=== PATIENT | male | born 1960 | race Caucasian/White ===

== ENCOUNTER 2025-05-02 14:26 | Inpatient (IN) | payer OTHER, SELFPAY ==
[2025-05-02] MEDS ORDERED: Heparin 25,000 UNITS/D5W 500 ml bag ONE (14:43)
[2025-05-02] MEDS ORDERED: Heparin 10,000 UNITS/ 10 ML VIAL ONE ×3 (14:43→16:34)
[2025-05-02] MEDS ORDERED: Nitroglycerin 0.4 MG TAB (25 Tab Bottle) ONE (14:43)
[2025-05-02] MEDS ORDERED: Lidocaine 1% (PF) 30 ML VIAL ONE (14:48)
[2025-05-02] MEDS ORDERED: Nitroglycerin 50 MG/250 ML BOT 250 ML ONE (14:48)
[2025-05-02 14:55] LABS: #Basophils 0.03 10x3/uL (0.0-0.2); #Eosinophils 0.11 10x3/uL (0.0-0.7); #Monocytes 0.56 10x3/uL (0.11-0.59); #Neutrophils 4.10 10x3/uL (1.40-6.50); %Basophils 0.5 % (0.0-1.0); %Eosinophils 1.7 % (0.0-10.0); %Lymphocytes 24.6 % (21.0-51.0); %Monocytes 8.8 % (0.0-10.0); %Neutrophils 64.2 % (42.0-75.0); Hematocrit 47.4 % (42.0-52.0); Hemoglobin 16.3 g/dL (14.0-18.0); Mean Corpuscular Hemoglobin 30.1 pg (27.0-31.0); Mean Corpuscular Volume 87.5 fL (78.0-98.0); Platelet Count 173 10x3/uL (130-400); Red Blood Cell (RBC) Count 5.42 mill/uL (4.70-6.10); White Blood Cell (WBC) Count 6.38 10x3/uL (4.8-10.8)
[2025-05-02 15:09] LABS: INR-International Normal Ratio 1.0; Prothrombin Time 13.2 sec (12.0-14.7)
[2025-05-02 15:10] LABS: PTT 31.9 sec (22.9-36.1)
[2025-05-02 15:19] LABS: ALT (SGPT) 30 U/L (Less than 45); AST (SGOT) 39 U/L (11-34); Albumin 4.2 g/dL (3.1-4.5); Alkaline Phosphatase 124 U/L (40-110); Anion Gap 15 mmol/L (10-20); BUN (Urea Nitrogen) 6 mg/dL (8.4-25.7); Bilirubin, Total 1.0 mg/dL (0.3-1.2); Calc. Creatinine Clearance 0 mL/min (70-130); Calcium 9.9 mg/dL (7.8-10.44); Carbon Dioxide 25 mmol/L (23-31); Chloride 100 mmol/L (98-107); Globulin 3.7 g/dL (2.4-3.5); Glucose 291 mg/dL (80-115); Lipase 33 U/L (8-78); Potassium 3.5 mmol/L (3.5-5.1); Sodium 136 mmol/L (136-145)
[2025-05-02] MEDS ORDERED: Iopamidol 370 76% 100 ML VIAL ONE (15:54)
[2025-05-02] MEDS ORDERED: Ondansetron PF 4 MG/2 ML Vial ONE (16:34)
[2025-05-02] MEDS ORDERED: Nitroglycerin 0.4 MG TAB (25 Tab Bottle) SL PRN (17:40)
[2025-05-02] MEDS ORDERED: Milk Of Magnesia 30 ML UDCUP PO PRN (17:40)
[2025-05-02] MEDS ORDERED: Communication Order-Pharmacy FS SCH (17:43)
[2025-05-02] MEDS ORDERED: Heparin 10,000 UNITS/ 10 ML VIAL SLOW IVP SCH (18:00)
[2025-05-02 18:09] VITALS: BMI 25.8
[2025-05-02] MEDS: Aspirin 81 mg Enteric Coated Tablet PO SCH (19:39)
[2025-05-02 21:42] LABS: PTT 199.1 sec (22.9-36.1)
[2025-05-03 04:05] LABS: #Basophils 0.03 10x3/uL (0.0-0.2); #Eosinophils 0.11 10x3/uL (0.0-0.7); #Monocytes 0.90 10x3/uL (0.11-0.59); #Neutrophils 7.86 10x3/uL (1.40-6.50); %Basophils 0.3 % (0.0-1.0); %Eosinophils 1.0 % (0.0-10.0); %Lymphocytes 21.1 % (21.0-51.0); %Monocytes 8.0 % (0.0-10.0); %Neutrophils 69.4 % (42.0-75.0); Hematocrit 39.4 % (42.0-52.0); Hemoglobin 13.7 g/dL (14.0-18.0); Mean Corpuscular Hemoglobin 30.4 pg (27.0-31.0); Mean Corpuscular Volume 87.4 fL (78.0-98.0); Platelet Count 184 10x3/uL (130-400); Red Blood Cell (RBC) Count 4.51 mill/uL (4.70-6.10); White Blood Cell (WBC) Count 11.31 10x3/uL (4.8-10.8)
[2025-05-03 04:22] LABS: ALT (SGPT) 42 U/L (Less than 45); AST (SGOT) 192 U/L (11-34); Albumin 3.3 g/dL (3.1-4.5); Alkaline Phosphatase 92 U/L (40-110); Anion Gap 11 mmol/L (10-20); BUN (Urea Nitrogen) 6 mg/dL (8.4-25.7); Bilirubin, Total 0.8 mg/dL (0.3-1.2); Calc. Creatinine Clearance 93 mL/min (70-130); Calcium 8.7 mg/dL (7.8-10.44); Carbon Dioxide 24 mmol/L (23-31); Cardiac Risk 3.9 (Less than 4.5); Chloride 105 mmol/L (98-107); Cholesterol 174 mg/dl (< 200 Desired); Globulin 2.8 g/dL (2.4-3.5); Glucose 150 mg/dL (80-115); HDL Cholesterol 45 mg/dL (>60 Neg Risk); LDL Cholesterol, Calculated 111 mg/dL; Potassium 3.7 mmol/L (3.5-5.1); Sodium 136 mmol/L (136-145); Triglycerides 91 mg/dL (Less than 150)
[2025-05-03] MEDS ORDERED: Etomidate 40 MG (20 mL) VIAL ONE (06:29)
[2025-05-03] MEDS ORDERED: Lidocaine 2% PF 100 mg/5 ml Syringe ONE (06:29)
[2025-05-03] MEDS ORDERED: CABG-Clindamycin/D5W 900 MG in Premix 1 BAG IVPB SCH (07:30)
[2025-05-03] MEDS ORDERED: Heparin 10,000 UNITS/1 ML VIAL 30,000 UNITS in Sodium Chloride 0.9% 1,000 ML FS SCH (08:00)
[2025-05-03] MEDS ORDERED: Aspirin 81 mg Enteric Coated Tablet PO SCH (09:00)
[2025-05-03] MEDS ORDERED: Heparin 5,000 UNITS/ML VIAL ONE (09:50)
[2025-05-03] MEDS ORDERED: Calcium Chloride 1 GM/10 ML Abboject SYRINGE ONE (09:50)
[2025-05-03] MEDS ORDERED: PHENYLEPHRINE-NS 100 MCG/ML 10 ML SYRINGE ONE (09:50)
[2025-05-03] MEDS ORDERED: Thrombin 5000 UNITS/5 ML VIAL ONE (09:50)
[2025-05-03] MEDS ORDERED: Heparin 30,000 units/30 ml VIAL ONE (09:50)
[2025-05-03] MEDS: Mupirocin 1 GM TUBE TP SCH (11:14)
[2025-05-03] MEDS ORDERED: Bisacodyl 10 MG SUPP PR PRN (14:46)
[2025-05-03] MEDS ORDERED: Ondansetron PF 4 MG/2 ML Vial IVP PRN (14:46)
[2025-05-03] MEDS ORDERED: Albumin 5% 12.5 GM (250 mL) BOT IVPB PRN (14:46)
[2025-05-03] MEDS ORDERED: Nitroglycerin 50 MG/250 ML BOT 250 ML IVPB PRN (14:46)
[2025-05-03] MEDS ORDERED: Mag-Al 1200 mg/1200 mg/30 ML UDCUP PO PRN (14:46)
[2025-05-03] MEDS ORDERED: hydrALAZINE 20 MG/ML VIAL SLOW IVP PRN (14:46)
[2025-05-03] MEDS ORDERED: Phenylephrine 40 MG/NS 250 ML 250 ML IVPB PRN (14:46)
[2025-05-03] MEDS ORDERED: niCARdipine 25 MG in Sodium Chloride 0.9% 250 ML 250 ML IVPB PRN (14:46)
[2025-05-03] MEDS ORDERED: Guaifenesin DM 100-10/5 ML UDCUP PO PRN (14:46)
[2025-05-03] MEDS ORDERED: Post-Op Insulin Drip Protocol IVPB SCH (14:46)
[2025-05-03] MEDS ORDERED: Electrolyte Replacement Protocol 1 EACH FS SCH (15:00)
[2025-05-03] MEDS ORDERED: Glucagon 1 MG/ML KIT SC PRN (15:15)
[2025-05-03] MEDS ORDERED: Magnesium Sulfate In Water 4 GM in Premix 1 BAG IVPB PRN (15:15)
[2025-05-03] MEDS ORDERED: INSULIN REGULAR IN 0.9 % NACL 100 UNITS in Premix 1 BAG IVPB SCH (15:15)
[2025-05-03] MEDS ORDERED: Potassium Chloride 20 MEQ in Premix 1 BAG IVPB PRN (15:15)
[2025-05-03] MEDS ORDERED: Dextrose 50% Abboject 50 ML SYRINGE SLOW IVP PRN (15:15)
[2025-05-03 15:27] LABS: #Basophils 0.05 10x3/uL (0.0-0.2); #Eosinophils 0.18 10x3/uL (0.0-0.7); #Monocytes 1.17 10x3/uL (0.11-0.59); #Neutrophils 14.12 10x3/uL (1.40-6.50); %Basophils 0.3 % (0.0-1.0); %Eosinophils 0.9 % (0.0-10.0); %Lymphocytes 20.6 % (21.0-51.0); %Monocytes 5.9 % (0.0-10.0); %Neutrophils 71.7 % (42.0-75.0); Hematocrit 34.1 % (42.0-52.0); Hemoglobin 11.4 g/dL (14.0-18.0); Mean Corpuscular Hemoglobin 30.5 pg (27.0-31.0); Mean Corpuscular Volume 91.2 fL (78.0-98.0); Platelet Count 136 10x3/uL (130-400); Red Blood Cell (RBC) Count 3.74 mill/uL (4.70-6.10); White Blood Cell (WBC) Count 19.70 10x3/uL (4.8-10.8)
[2025-05-03 15:31] LABS: Actual Bicarbonate (HCO3a) 20.2 mEq/L (22-28); Base Excess (BEa) -4.2 mEq/L (-2.0 to +3.0); CO2 Tension 34.7 mmHg (35.0-45.0); Calcium, Ionized (arterial) 1.14 mmol/L (1.12-1.30); Hematocrit-ABG 37 % (42.0-52.0); Hemoglobin (Hb) 12.6 g/dL (14.0-18.0); O2 Tension (PaO2), arterial 92.6 mmHg (> 80.0); Potassium - ABG Lab 3.37 mmol/L (3.70-5.30); pH, Arterial 7.382 (7.35-7.45)
[2025-05-03 15:35] LABS: Puncture Site Arterial Line
[2025-05-03 15:36] LABS: ALV-art Gradient 149.225 mmHg (0-20)
[2025-05-03] MEDS: Clindamycin/D5W 900 MG in Premix 1 BAG IVPB SCH (15:36)
[2025-05-03] MEDS: Magnesium 2 GM/50 ML(in water) 2 GM in Premix 1 BAG IVPB SCH (15:36)
[2025-05-03 15:41] LABS: ALT (SGPT) 30 U/L (Less than 45); AST (SGOT) 122 U/L (11-34); Albumin 2.9 g/dL (3.1-4.5); Alkaline Phosphatase 67 U/L (40-110); Anion Gap 12 mmol/L (10-20); BUN (Urea Nitrogen) 7 mg/dL (8.4-25.7); Bilirubin, Total 1.4 mg/dL (0.3-1.2); Calc. Creatinine Clearance 94 mL/min (70-130); Calcium 8.0 mg/dL (7.8-10.44); Carbon Dioxide 20 mmol/L (23-31); Chloride 109 mmol/L (98-107); Globulin 1.9 g/dL (2.4-3.5); Glucose 162 mg/dL (80-115); Potassium 3.4 mmol/L (3.5-5.1); Sodium 138 mmol/L (136-145)
[2025-05-03 15:45] LABS: INR-International Normal Ratio 1.4; Prothrombin Time 17.4 sec (12.0-14.7)
[2025-05-03 15:46] LABS: PTT 31.7 sec (22.9-36.1)
[2025-05-03 18:24] LABS: Actual Bicarbonate (HCO3a) 21.3 mEq/L (22-28); Base Excess (BEa) -4.0 mEq/L (-2.0 to +3.0); CO2 Tension 39.4 mmHg (35.0-45.0); Calcium, Ionized (arterial) 1.18 mmol/L (1.12-1.30); Hematocrit-ABG 35 % (42.0-52.0); Hemoglobin (Hb) 12.0 g/dL (14.0-18.0); O2 Tension (PaO2), arterial 81.0 mmHg (> 80.0); Potassium - ABG Lab 3.56 mmol/L (3.70-5.30); pH, Arterial 7.350 (7.35-7.45)
[2025-05-03 18:25] LABS: Puncture Site Arterial Line
[2025-05-03] MEDS: Norepinephrine 8 MG/0.9% NS 250 ML IVPB PRN (18:46)
[2025-05-03] MEDS: Potassium Chloride 20 MEQ (100 mL) BAG IVPB PRN (19:10)
[2025-05-03] MEDS: Famotidine/PF 20 mg/2ml Vial SLOW IVP SCH (20:15)
[2025-05-03] MEDS: Senokot S 8.6-50 MG TAB PO SCH (20:21)
[2025-05-03 22:17] LABS: Hematocrit 33.6 % (42.0-52.0); Hemoglobin 11.1 g/dL (14.0-18.0)
[2025-05-03 22:34] LABS: Potassium 4.2 mmol/L (3.5-5.1)
[2025-05-04 04:43] LABS: #Basophils Less than 0.03 10x3/uL (0.0-0.2); #Eosinophils Less than 0.03 10x3/uL (0.0-0.7); #Monocytes 1.31 10x3/uL (0.11-0.59); #Neutrophils 10.21 10x3/uL (1.40-6.50); %Basophils 0.1 % (0.0-1.0); %Eosinophils 0.0 % (0.0-10.0); %Lymphocytes 5.9 % (21.0-51.0); %Monocytes 10.7 % (0.0-10.0); %Neutrophils 83.1 % (42.0-75.0); Hematocrit 33.3 % (42.0-52.0); Hemoglobin 10.9 g/dL (14.0-18.0); Mean Corpuscular Hemoglobin 30.2 pg (27.0-31.0); Mean Corpuscular Volume 92.2 fL (78.0-98.0); Platelet Count 117 10x3/uL (130-400); Red Blood Cell (RBC) Count 3.61 mill/uL (4.70-6.10); White Blood Cell (WBC) Count 12.29 10x3/uL (4.8-10.8)
[2025-05-04 05:05] LABS: Anion Gap 12 mmol/L (10-20); BUN (Urea Nitrogen) 9 mg/dL (8.4-25.7); Calc. Creatinine Clearance 99 mL/min (70-130); Calcium 8.3 mg/dL (7.8-10.44); Carbon Dioxide 24 mmol/L (23-31); Chloride 107 mmol/L (98-107); Glucose 130 mg/dL (80-115); Magnesium 2.1 mg/dL (1.6-2.6); Potassium 4.1 mmol/L (3.5-5.1); Sodium 139 mmol/L (136-145)
[2025-05-04] MEDS: Acetaminophen 325 MG TAB PO PRN (07:24)
[2025-05-04] MEDS ORDERED: Glucagon 1 MG/ML KIT IM PRN (09:58)
[2025-05-04] MEDS ORDERED: Dextrose 50% Abboject 50 ML SYRINGE SLOW IVP PRN (09:58)
[2025-05-04] MEDS: Magnesium 2 GM/50 ML(in water) 2 GM in Premix 1 BAG IVPB SCH (10:31)
[2025-05-04] MEDS: Aspirin 325 MG TAB PO SCH (10:31)
[2025-05-04] MEDS: Heparin 5,000 UNITS/ML VIAL SC SCH (10:33)
[2025-05-04] MEDS: Albumin 5% 12.5 GM (250 mL) BOT IVPB PRN (11:45)
[2025-05-04] MEDS ORDERED: Insulin Glargine 30 UNITS/0.3 ML VIAL SC PRN (15:09)
[2025-05-04] MEDS: Transdermal Patch Removal TOP SCH (21:14)
[2025-05-05 04:23] LABS: #Basophils 0.03 10x3/uL (0.0-0.2); #Eosinophils 0.05 10x3/uL (0.0-0.7); #Monocytes 1.51 10x3/uL (0.11-0.59); #Neutrophils 10.19 10x3/uL (1.40-6.50); %Basophils 0.2 % (0.0-1.0); %Eosinophils 0.4 % (0.0-10.0); %Lymphocytes 12.0 % (21.0-51.0); %Monocytes 11.2 % (0.0-10.0); %Neutrophils 75.8 % (42.0-75.0); Hematocrit 30.8 % (42.0-52.0); Hemoglobin 10.1 g/dL (14.0-18.0); Mean Corpuscular Hemoglobin 30.3 pg (27.0-31.0); Mean Corpuscular Volume 92.5 fL (78.0-98.0); Platelet Count 121 10x3/uL (130-400); Red Blood Cell (RBC) Count 3.33 mill/uL (4.70-6.10); White Blood Cell (WBC) Count 13.45 10x3/uL (4.8-10.8)
[2025-05-05 04:33] LABS: Anion Gap 8 mmol/L (10-20); BUN (Urea Nitrogen) 14 mg/dL (8.4-25.7); Calc. Creatinine Clearance 101 mL/min (70-130); Calcium 8.3 mg/dL (7.8-10.44); Carbon Dioxide 28 mmol/L (23-31); Chloride 100 mmol/L (98-107); Glucose 173 mg/dL (80-115); Potassium 4.1 mmol/L (3.5-5.1); Sodium 132 mmol/L (136-145)
[2025-05-05 04:34] LABS: Magnesium 1.9 mg/dL (1.6-2.6)
[2025-05-05] MEDS: Pantoprazole 40 MG DR.TAB PO SCH (07:48)
[2025-05-05] MEDS ORDERED: Artificial Tear Ophth Sol 15 ML BOT EA EYE PRN (10:09)
[2025-05-05] MEDS ORDERED: Milk Of Magnesia 30 ML UDCUP PO PRN (10:09)
[2025-05-05] MEDS ORDERED: Mineral Oil ENEMA PR PRN (10:09)
[2025-05-05] MEDS ORDERED: diphenhydrAMINE 25 MG CAP PO PRN (10:09)
[2025-05-05] MEDS ORDERED: Nitroglycerin 0.4 MG TAB (25 Tab Bottle) SL PRN (10:09)
[2025-05-05] MEDS: Furosemide 40 MG TAB PO SCH (10:38)
[2025-05-05] MEDS: Ferrous Gluconate 324 MG TAB PO SCH (12:54)
[2025-05-05 13:45] LABS: Magnesium 2.1 mg/dL (1.6-2.6)
[2025-05-05] MEDS: PHOS-NAK 1 PKT PACK PO PRN (14:00)
[2025-05-06 05:08] LABS: #Basophils Less than 0.03 10x3/uL (0.0-0.2); #Eosinophils 0.07 10x3/uL (0.0-0.7); #Monocytes 1.01 10x3/uL (0.11-0.59); #Neutrophils 7.00 10x3/uL (1.40-6.50); %Basophils 0.2 % (0.0-1.0); %Eosinophils 0.7 % (0.0-10.0); %Lymphocytes 15.8 % (21.0-51.0); %Monocytes 10.5 % (0.0-10.0); %Neutrophils 72.5 % (42.0-75.0); Hematocrit 29.8 % (42.0-52.0); Hemoglobin 10.1 g/dL (14.0-18.0); Mean Corpuscular Hemoglobin 30.7 pg (27.0-31.0); Mean Corpuscular Volume 90.6 fL (78.0-98.0); Platelet Count 125 10x3/uL (130-400); Red Blood Cell (RBC) Count 3.29 mill/uL (4.70-6.10); White Blood Cell (WBC) Count 9.66 10x3/uL (4.8-10.8)
[2025-05-06 05:14] LABS: Anion Gap 15 mmol/L (10-20); BUN (Urea Nitrogen) 13 mg/dL (8.4-25.7); Calc. Creatinine Clearance 110 mL/min (70-130); Calcium 8.1 mg/dL (7.8-10.44); Carbon Dioxide 23 mmol/L (23-31); Chloride 96 mmol/L (98-107); Glucose 153 mg/dL (80-115); Potassium 3.6 mmol/L (3.5-5.1); Sodium 130 mmol/L (136-145)
[2025-05-06 07:25] LABS: Magnesium 1.8 mg/dL (1.6-2.6)
[2025-05-06] MEDS: Furosemide 40 MG TAB PO SCH (08:24)
[2025-05-06] MEDS ORDERED: Furosemide 40 MG TAB PO SCH (09:00)
[2025-05-07 04:03] LABS: #Basophils Less than 0.03 10x3/uL (0.0-0.2); #Eosinophils 0.10 10x3/uL (0.0-0.7); #Monocytes 1.04 10x3/uL (0.11-0.59); #Neutrophils 5.66 10x3/uL (1.40-6.50); %Basophils 0.2 % (0.0-1.0); %Eosinophils 1.1 % (0.0-10.0); %Lymphocytes 22.9 % (21.0-51.0); %Monocytes 11.7 % (0.0-10.0); %Neutrophils 63.8 % (42.0-75.0); Hematocrit 29.9 % (42.0-52.0); Hemoglobin 9.8 g/dL (14.0-18.0); Mean Corpuscular Hemoglobin 30.1 pg (27.0-31.0); Mean Corpuscular Volume 91.7 fL (78.0-98.0); Platelet Count 173 10x3/uL (130-400); Red Blood Cell (RBC) Count 3.26 mill/uL (4.70-6.10); White Blood Cell (WBC) Count 8.89 10x3/uL (4.8-10.8)
[2025-05-07 04:34] LABS: Anion Gap 13 mmol/L (10-20); BUN (Urea Nitrogen) 14 mg/dL (8.4-25.7); Calc. Creatinine Clearance 100 mL/min (70-130); Calcium 8.4 mg/dL (7.8-10.44); Carbon Dioxide 27 mmol/L (23-31); Chloride 99 mmol/L (98-107); Glucose 115 mg/dL (80-115); Potassium 3.7 mmol/L (3.5-5.1); Sodium 135 mmol/L (136-145)
[2025-05-07] MEDS ORDERED: Senokot S 8.6-50 MG TAB PO PRN (06:41)
[2025-05-07 07:57] LABS: Magnesium 2.1 mg/dL (1.6-2.6)
[2025-05-07] MEDS: Lisinopril 2.5 MG TAB PO SCH (09:22)
[2025-05-08 03:45] LABS: #Basophils Less than 0.03 10x3/uL (0.0-0.2); #Eosinophils 0.13 10x3/uL (0.0-0.7); #Monocytes 1.15 10x3/uL (0.11-0.59); #Neutrophils 5.24 10x3/uL (1.40-6.50); %Basophils 0.2 % (0.0-1.0); %Eosinophils 1.5 % (0.0-10.0); %Lymphocytes 24.5 % (21.0-51.0); %Monocytes 13.2 % (0.0-10.0); %Neutrophils 60.0 % (42.0-75.0); Hematocrit 31.1 % (42.0-52.0); Hemoglobin 10.3 g/dL (14.0-18.0); Mean Corpuscular Hemoglobin 30.5 pg (27.0-31.0); Mean Corpuscular Volume 92.0 fL (78.0-98.0); Platelet Count 209 10x3/uL (130-400); Red Blood Cell (RBC) Count 3.38 mill/uL (4.70-6.10); White Blood Cell (WBC) Count 8.73 10x3/uL (4.8-10.8)
[2025-05-08 04:10] LABS: Anion Gap 13 mmol/L (10-20); BUN (Urea Nitrogen) 14 mg/dL (8.4-25.7); Calc. Creatinine Clearance 94 mL/min (70-130); Calcium 8.4 mg/dL (7.8-10.44); Carbon Dioxide 27 mmol/L (23-31); Chloride 100 mmol/L (98-107); Glucose 122 mg/dL (80-115); Potassium 3.2 mmol/L (3.5-5.1); Sodium 137 mmol/L (136-145)
[2025-05-08 15:23] VITALS: BP 117/80; TEMP 98.1
== END 2025-05-08 15:44 | disposition home or self-care (01) | DRG 231 ==
LOC: ERS 14:26 → CCL 15:06 → CCU 17:14 → PCU 05-05 10:01
PROVIDERS: ADMIT Student in an Organized Health Care Education/Training Program; ATTEND Hospitalist
PROC: 02C03ZZ Extirpation of Matter from Coronary Artery, One Artery, Percutaneous Approach (ICD-10-PCS; principal; 2025-05-02)
PROC: 02703ZZ Dilation of Coronary Artery, One Artery, Percutaneous Approach (ICD-10-PCS; 2025-05-02)
PROC: 4A023N7 Measurement of Cardiac Sampling and Pressure, Left Heart, Percutaneous Approach (ICD-10-PCS; 2025-05-02)
PROC: B2151ZZ Fluoroscopy of Left Heart using Low Osmolar Contrast (ICD-10-PCS; 2025-05-02)
PROC: 02100Z9 Bypass Coronary Artery, One Artery from Left Internal Mammary, Open Approach (ICD-10-PCS; 2025-05-03)
PROC: 021209W Bypass Coronary Artery, Three Arteries from Aorta with Autologous Venous Tissue, Open Approach (ICD-10-PCS; 2025-05-03)
PROC: 06BP4ZZ Excision of Right Saphenous Vein, Percutaneous Endoscopic Approach (ICD-10-PCS; 2025-05-03)
PROC: 02L70CK Occlusion of Left Atrial Appendage with Extraluminal Device, Open Approach (ICD-10-PCS; 2025-05-03)
PROC: 5A1221Z Performance of Cardiac Output, Continuous (ICD-10-PCS; 2025-05-03)
PROC: 3E080GC Introduction of Other Therapeutic Substance into Heart, Open Approach (ICD-10-PCS; 2025-05-03)
PROC: 4A133R1 Monitoring of Arterial Saturation, Peripheral, Percutaneous Approach (ICD-10-PCS; 2025-05-03)
PROC: 30233J1 Transfusion of Nonautologous Serum Albumin into Peripheral Vein, Percutaneous Approach (ICD-10-PCS; 2025-05-03)
PROC: 03HY32Z Insertion of Monitoring Device into Upper Artery, Percutaneous Approach (ICD-10-PCS; 2025-05-03)
PROC: 4A133B1 Monitoring of Arterial Pressure, Peripheral, Percutaneous Approach (ICD-10-PCS; 2025-05-03)
PROC: 4A133J1 Monitoring of Arterial Pulse, Peripheral, Percutaneous Approach (ICD-10-PCS; 2025-05-03)
PROC: 05H533Z Insertion of Infusion Device into Right Subclavian Vein, Percutaneous Approach (ICD-10-PCS; 2025-05-03)
PROC: B5161ZA Fluoroscopy of Right Subclavian Vein using Low Osmolar Contrast, Guidance (ICD-10-PCS; 2025-05-03)
DX: I21.19 ST elevation (STEMI) myocardial infarction involving other coronary artery of inferior wall (principal); J96.01 Acute respiratory failure with hypoxia; I10 Essential (primary) hypertension; K21.9 Gastro-esophageal reflux disease without esophagitis; J45.909 Unspecified asthma, uncomplicated; D50.9 Iron deficiency anemia, unspecified; Z87.891 Personal history of nicotine dependence; Z88.0 Allergy status to penicillin; Z79.82 Long term (current) use of aspirin; Z79.899 Other long term (current) drug therapy; Z95.1 Presence of aortocoronary bypass graft
CPT/HCPCS: 36415; 36416; 71045; 80048; 80053; 80061; 82805; 83036; 83690; 83735; 83880; 84100; 84484; 85025; 85347; 85610; 85730; 86850; 86900; 86901; 92941; 93005; 93010; 93306; 93458; 93798; 94002; 94640; 94760; 96365; 96374; 96375; 99152; 99153; A4311; A4648; C1725; C1751; C1757; C1769; C1887; C1889; C1894; C9606; J0169; J0461; J1100; J1308; J1644; J1815; J2003; J2270; J2272; J2405; J2440; J3010; J3373; J3475; J3480; J3490; J7030; J7120; P9045; Q9967; S0017